=== PATIENT | male | born 1945 | race Caucasian/White ===

== ENCOUNTER 2019-03-22 16:27 | Outpatient (REF) | payer MEDICARE, SELFPAY ==
[2019-03-22 21:46] LABS: Microalb ug/mg Crea 200.4 ug/mg Cr
== END 2019-03-22 16:47 ==
LOC: NCHCN 16:27
PROVIDERS: Visit Provider Internal Medicine
DX: E10.9 Type 1 diabetes mellitus without complications (principal)
CPT/HCPCS: 82043; 82570

== ENCOUNTER 2022-05-18 18:48 | Outpatient (REF) | payer MEDICARE, SELFPAY ==
[2022-05-18 21:29] LABS: COMMENT (LAB VIEW ONLY) 96.97 mg/dL
[2022-05-18 21:32] LABS: Microalb ug/mg Crea 202.1 ug/mg Cr
== END 2022-05-18 18:49 | disposition home or self-care (01) ==
LOC: NCHCN 18:48
PROVIDERS: Visit Provider Nurse Practitioner Family
DX: E10.8 Type 1 diabetes mellitus with unspecified complications (principal)
CPT/HCPCS: 82043; 82570

== ENCOUNTER 2022-09-03 15:29 | Outpatient (REF) | payer MEDICARE, SELFPAY ==
[2022-09-03 20:50] LABS: HCT 35.3 % (40.0-50.0); HGB 12.3 g/dL (13.5-17.5); MCH 35.7 pg (27.0-33.0); MCHC 34.8 % (32.0-36.0); MCV 102 fL (80-95); MPV 11.8 fL (8.0-11.0); Platelet Count 177 10^3/uL (130-400); RBC 3.45 10^6/uL (4.36-5.78); RDW 11.9 % (11.8-14.1); RDW-SD 44.6 fL
[2022-09-03 20:55] LABS: Iron 121 ug/dL (65-175); Total Iron Binding Capacity 304 ug/dL (250-450); Transferrin Sat 40 % (20-55)
[2022-09-03 21:22] LABS: Ferritin 326 ng/mL (26-388); Vitamin B12 448 pg/mL (193-986)
[2022-09-04 17:16] LABS: Vitamin D 25 Total 27.8 ng/mL (30-100)
== END 2022-09-03 15:30 | disposition home or self-care (01) ==
LOC: NCHCN 15:29
PROVIDERS: Visit Provider Internal Medicine
DX: E55.9 Vitamin D deficiency, unspecified (principal); R53.83 Other fatigue; D64.9 Anemia, unspecified
CPT/HCPCS: 82306; 85027; 82607; 82728; 83540; 83550

== ENCOUNTER 2023-05-04 17:59 | Outpatient (REF) | payer MEDICARE, SELFPAY | END 2023-05-04 18:00 | disposition home or self-care (01) | LOC: NCHCN 17:59 | PROVIDERS: Visit Provider Nurse Practitioner Family | DX: E10.8 Type 1 diabetes mellitus with unspecified complications (principal) | CPT/HCPCS: 82043; 82570 ==

== ENCOUNTER 2023-08-01 14:24 | Outpatient (REF) | payer MEDICARE, SELFPAY ==
[2023-08-01 21:59] LABS: ESR 1 mm/hr (0-20)
[2023-08-01 22:00] LABS: HCT 35.7 % (40.0-50.0); HGB 12.7 g/dL (13.5-17.5); MCH 35.6 pg (27.0-33.0); MCHC 35.6 % (32.0-36.0); MCV 100 fL (80-95); MPV 12.4 fL (8.0-11.0); Platelet Count 162 10^3/uL (130-400); RBC 3.57 10^6/uL (4.36-5.78); RDW 12.4 % (11.8-14.1); RDW-SD 45.7 fL; WBC 7.34 10^3/uL (4.4-10.8)
[2023-08-01 22:17] LABS: Hemoglobin A1C 7.4 % (<5.7)
[2023-08-01 22:20] LABS: ALT 36 U/L (16-63); AST 28 U/L (15-37); Albumin 3.6 g/dL (3.4-5.0); Alkaline Phosphatase 113 U/L (46-116); Anion Gap 6.6 mmol/L (3-11); BUN 26 mg/dL (7-18); Bilirubin, Total 0.8 mg/dL (0.2-1.0); CO2 27.4 mmol/L (21.0-32.0); CREATININE 1.2 mg/dL (0.70-1.30); Calcium 9.2 mg/dL (8.5-10.1); Chloride 103 mmol/L (98-107); Glucose 150 mg/dL (74-106); Potassium 4.6 mmol/L (3.5-5.1); Sodium 137 mmol/L (136-145); Total Protein 6.7 g/dL (6.4-8.2)
== END 2023-08-01 14:25 | disposition home or self-care (01) ==
LOC: NCHCN 14:24
PROVIDERS: Visit Provider Registered Nurse
DX: M35.3 Polymyalgia rheumatica (principal); I10 Essential (primary) hypertension; F10.10 Alcohol abuse, uncomplicated; E55.9 Vitamin D deficiency, unspecified; E10.8 Type 1 diabetes mellitus with unspecified complications; D64.9 Anemia, unspecified
CPT/HCPCS: 80053; 82306; 85027; 85652; 83036

== ENCOUNTER 2024-03-06 16:14 | Outpatient (REF) | payer MEDICARE, SELFPAY ==
[2024-03-06 22:00] LABS: HGB 10.2 g/dL (13.5-17.5); MCH 35.5 pg (27.0-33.0); MCHC 35.2 % (32.0-36.0); MCV 101 fL (80-95); MPV 11.2 fL (8.0-11.0); Platelet Count 185 10^3/uL (130-400); RBC 2.87 10^6/uL (4.36-5.78); RDW 12.8 % (11.8-14.1); RDW-SD 47.8 fL; WBC 5.28 10^3/uL (4.4-10.8)
[2024-03-06 22:03] LABS: Anion Gap 6.4 mmol/L (3-11); BUN 27 mg/dL (7-18); CO2 27.6 mmol/L (21.0-32.0); CREATININE 1.2 mg/dL (0.70-1.30); Calcium 8.8 mg/dL (8.5-10.1); Chloride 102 mmol/L (98-107); Estimated GFR 61.52 (mL/min/1.73m2); Glucose 241 mg/dL (74-106); Potassium 5.1 mmol/L (3.5-5.1); Sodium 136 mmol/L (136-145)
== END 2024-03-06 16:15 | disposition home or self-care (01) ==
LOC: NCHCN 16:14
PROVIDERS: Visit Provider Nurse Practitioner Family
DX: I25.10 Atherosclerotic heart disease of native coronary artery without angina pectoris (principal); I10 Essential (primary) hypertension
CPT/HCPCS: 80048; 85027

== ENCOUNTER 2024-04-10 11:31 | Outpatient (REF) | payer MEDICARE, SELFPAY ==
[2024-04-10 15:57] LABS: HGB 10.5 g/dL (13.5-17.5); MCH 36.2 pg (27.0-33.0); MCV 103 fL (80-95); MPV 11.4 fL (8.0-11.0); Platelet Count 163 10^3/uL (130-400); RDW 12.7 % (11.8-14.1); RDW-SD 47.6 fL; WBC 3.97 10^3/uL (4.4-10.8)
[2024-04-10 16:22] LABS: Lipase 24 U/L (16-77)
[2024-04-10 16:34] LABS: COMMENT (LAB VIEW ONLY) 142.67 mg/dL
[2024-04-10 16:46] LABS: Ferritin 335 ng/mL (26-388)
[2024-04-10 16:52] LABS: Microalb ug/mg Crea 77.6 ug/mg Cr
== END 2024-04-10 11:32 | disposition home or self-care (01) ==
LOC: NCHCN 11:31
PROVIDERS: Visit Provider Nurse Practitioner Family
DX: E10.8 Type 1 diabetes mellitus with unspecified complications (principal); D64.9 Anemia, unspecified; R11.0 Nausea
CPT/HCPCS: 83690; 85027; 82043; 82570; 82728

== ENCOUNTER 2024-09-04 22:53 | Outpatient (REF) | payer MEDICARE, SELFPAY ==
[2024-09-04 21:49] LABS: HCT 29.7 % (40.0-50.0); HGB 10.2 g/dL (13.5-17.5); MCH 36.3 pg (27.0-33.0); MCHC 34.3 % (32.0-36.0); MCV 106 fL (80-95); MPV 11.5 fL (8.0-11.0); Platelet Count 150 10^3/uL (130-400); RBC 2.81 10^6/uL (4.36-5.78); RDW-SD 46.5 fL; Reticulocyte 1.9 % (0.5-2.4); WBC 4.55 10^3/uL (4.4-10.8)
[2024-09-04 22:17] LABS: Iron 95 ug/dL (65-175); Total Iron Binding Capacity 270 ug/dL (250-450); Transferrin Sat 35 % (20-55)
[2024-09-04 22:44] LABS: Ferritin 133 ng/mL (26-388); Vitamin B12 424 pg/mL (193-986)
[2024-09-04 22:49] LABS: Folate > 20.0 ng/mL (8.6-20.0)
== END 2024-09-04 22:54 | disposition home or self-care (01) ==
LOC: NCHCN 22:53
PROVIDERS: Visit Provider Nurse Practitioner Family
DX: D64.9 Anemia, unspecified (principal)
CPT/HCPCS: 85027; 82607; 82728; 82746; 83540; 83550; 85045

== ENCOUNTER 2025-09-04 20:47 | Outpatient (REF) | payer MEDICARE, SELFPAY ==
[2025-09-04 22:11] LABS: COMMENT (LAB VIEW ONLY) 55.64 mg/dL
[2025-09-04 22:12] LABS: Microalb ug/mg Crea 107.8 ug/mg Cr
== END 2025-09-04 20:48 | disposition home or self-care (01) ==
LOC: NCHCN 20:47
PROVIDERS: Visit Provider Internal Medicine
DX: E10.8 Type 1 diabetes mellitus with unspecified complications (principal)
CPT/HCPCS: 82043; 82570